=== PATIENT | male | born 1950 | race Caucasian/White ===

== ENCOUNTER 2021-02-09 23:56 | Inpatient (IN) | payer OTHER ==
[~2021-02-09] VITALS: Ht 180.3 cm; Wt 98.9 kg
--- NOTE | 2021-02-10 00:04 | NUR ---
Pt brought in by EMS from home c/o acute on chronic severe lower back pain. Pt is s/p x6 days post op from lower lumbar disc surgery. This was done at [facility]. Pt was discharged x2 days post op, was able to ambulate without assistance. Over the last 12 hours, has progressively worsened to the point of unable to move, get out of bed without experiencing excruciating pain. EMS gave pt 2mg Versed, and 30mg Ketamine en route. Pain 6/10 upon arrival. Pt denies any urinary or fecal intontinence. Last BM earlier this afternoon.
[2021-02-10] MEDS ORDERED: ONDANSETRON 2MG/ML, 2ML ONE (00:13)
[2021-02-10] MEDS ORDERED: MORPHINE SULFATE 4 MG/ML, 1ML ONE ×2 (00:13→04:46)
[2021-02-10] MEDS ORDERED: ONDANSETRON 2MG/ML, 2ML IVPush ONE (00:30)
[2021-02-10] MEDS ORDERED: MORPHINE SULFATE 4 MG/ML, 1ML IVPush PRN (00:30)
[2021-02-10 00:32] LABS: BASOPHILS % (AUTO) 1 % (0-1); EOSINOPHILS % (AUTO) 1 % (1-7); HCT (SEDRATE) 42.2 % (39.2-51.8); LYMPHOCYTES % (AUTO) 12 % (22-44); MEAN CORPUSCULAR HEMOGLOBIN 29.5 pg (27.5-34.5); MEAN CORPUSCULAR HGB CONC 33.2 g/dL (33.2-36.2); MEAN PLATELET VOLUME 6.9 fL (7.4-10.4); MONOCYTES % (AUTO) 10 % (2-9); NEUTROPHILS % (AUTO) 77 % (42-75); PLATELET COUNT 286 x10^3/uL (130-400); RED BLOOD COUNT 4.74 x10^6/uL (4.38-5.82); RED CELL DISTRIBUTION WIDTH 15.2 % (9.4-14.8)
[2021-02-10 00:43] LABS: ALBUMIN 2.6 g/dL (3.4-5.0); ANION GAP 5 mmol/L (5-15); CALCIUM 8.8 mg/dL (8.5-10.1); CHLORIDE 106 mmol/L (98-107); CREATININE 0.63 mg/dL (0.7-1.3)
--- NOTE | 2021-02-10 00:56 | NUR ---
MRI screening form faxed.
[2021-02-10] MEDS ORDERED: GADOTERATE 5 MMOL/10ML SYR ONE (01:10)
--- NOTE | 2021-02-10 01:30 | NUR ---
ASSISTED PATIENT IN CALLING . PATIENT DENIES NEEDS AT THIS TIME. FEELING OK RIGHT NOW AND DOESN'T NEED MORE PAIN MEDICINE. CALL JONES IN REACH. BED IN LOW POSITION. VSS. WILL CONTINUE TO MONITOR.
[2021-02-10] MEDS ORDERED: GABAPENTIN 300 MG CAPSULE ONE (04:23)
[2021-02-10] MEDS ORDERED: DEXAMETHASONE 4 MG/ML, 1ML ONE (04:23)
[2021-02-10] MEDS ORDERED: DEXAMETHASONE 4 MG/ML, 1ML IVPush SCH (04:30)
[2021-02-10] MEDS ORDERED: PLEASE ENTER ALLERGIES MC SCH (04:30)
[2021-02-10] MEDS ORDERED: GABAPENTIN 300 MG CAPSULE PO ONE (04:30)
[2021-02-10] MEDS ORDERED: morphine SULFATE 10 MG/ML, 1ML IVPush PRN (05:30)
[2021-02-10] MEDS ORDERED: MELATONIN 5 MG TABLET PO PRN (05:30)
[2021-02-10] MEDS ORDERED: ACETAMINOPHEN 325 MG TABLET PO SCH (05:30)
[2021-02-10] MEDS ORDERED: OXYcodone IR 5MG TABLET PO PRN (05:30)
[2021-02-10] MEDS ORDERED: ONDANSETRON 2MG/ML, 2ML IVPush PRN (05:30)
[2021-02-10] MEDS ORDERED: morphine SULFATE/PF 0.5 MG/ML, 10ML IV ONE (05:30)
[2021-02-10] MEDS ORDERED: LABETALOL 5MG/ML, 20ML IVPush PRN (05:30)
[2021-02-10 05:32] VITALS: BP 107/63
[2021-02-10] MEDS: KETOROLAC 30 MG/1 ML IV PRN ×2 (06:02→20:38)
[2021-02-10] MEDS: BACLOFEN 10 MG TABLET PO PRN ×2 (06:02→20:38)
[2021-02-10 06:48] VITALS: BP 115/68
[2021-02-10] MEDS: DEXAMETHASONE 4 MG/ML, 1ML IVPush SCH ×3 (10:41→22:39)
[2021-02-10] MEDS: GABAPENTIN 100 MG CAPSULE PO SCH ×4 (10:42→20:39)
[2021-02-10] MEDS: ACETAMINOPHEN 325 MG TABLET PO SCH ×3 (13:30→20:38)
[2021-02-10 13:35] VITALS: BP 129/62
[2021-02-10 19:20] VITALS: BP 125/68
[2021-02-11 00:13] VITALS: BP 131/77
[2021-02-11] MEDS: ACETAMINOPHEN 325 MG TABLET PO SCH ×5 (00:41→16:30)
[2021-02-11] MEDS: KETOROLAC 30 MG/1 ML IV PRN (05:04)
[2021-02-11] MEDS: DEXAMETHASONE 4 MG/ML, 1ML IVPush SCH ×3 (05:04→17:00)
[2021-02-11 05:26] LABS: BASOPHILS % (AUTO) 0 % (0-1); EOSINOPHILS % (AUTO) 0 % (1-7); LYMPHOCYTES % (AUTO) 9 % (22-44); MEAN CORPUSCULAR HEMOGLOBIN 29.8 pg (27.5-34.5); MEAN CORPUSCULAR HGB CONC 33.5 g/dL (33.2-36.2); MONOCYTES % (AUTO) 7 % (2-9); NEUTROPHILS % (AUTO) 84 % (42-75); PLATELET COUNT 317 x10^3/uL (130-400); RED BLOOD COUNT 4.52 x10^6/uL (4.38-5.82); RED CELL DISTRIBUTION WIDTH 15.1 % (9.4-14.8)
[2021-02-11 05:37] LABS: ANION GAP 5 mmol/L (5-15); CHLORIDE 103 mmol/L (98-107)
[2021-02-11 05:39] LABS: CREATININE 0.83 mg/dL (0.7-1.3)
[2021-02-11] MEDS: GABAPENTIN 100 MG CAPSULE PO SCH ×3 (06:16→17:00)
[2021-02-11 06:32] VITALS: BP 130/71
[2021-02-11 12:00] VITALS: BP 131/69
== END 2021-02-11 17:00 | disposition home or self-care (01) | DRG 552 ==
LOC: ED 02-10 00:26 → OBSVTOIN 02-10 05:04 → INTOOBSV 02-10 05:04 → EDIP 02-10 05:04 → 4NE 02-10 05:26
PROVIDERS: ADMIT Internal Medicine; ATTEND Internal Medicine
DX: M54.5 Low back pain (principal); I71.4 Abdominal aortic aneurysm, without rupture; M48.00 Spinal stenosis, site unspecified; E66.01 Morbid (severe) obesity due to excess calories; F17.200 Nicotine dependence, unspecified, uncomplicated; F19.10 Other psychoactive substance abuse, uncomplicated; I10 Essential (primary) hypertension; N40.0 Benign prostatic hyperplasia without lower urinary tract symptoms; G89.29 Other chronic pain; Z88.8 Allergy status to other drugs, medicaments and biological substances; Z68.30 Body mass index [BMI] 30.0-30.9, adult
CPT/HCPCS: 36415; 72110; 72158; 80048; 82040; 83605; 83735; 85025; 85651; 86140; 96374; 96375; G0378; J1100; J1885; J2274; J2405; A9575; J2270